=== PATIENT | female | born 1965 | race Caucasian/White ===

== ENCOUNTER 2025-05-25 22:26 | Inpatient (IN) | payer MEDICAID ==
[~2025-05-25] VITALS: Ht 157.5 cm; Wt 88.0 kg
[2025-05-25 23:21] LABS: PLATELET COUNT (AUTO) 238 K/uL (150-450); RED BLOOD CELL COUNT(AUTO) 4.85 MIL/uL (4.00-5.20); RED CELL DISTRIBUTION WIDTH 13.7 % (11.5-14.5); WHITE BLOOD COUNT (AUTO) 5.6 K/uL (4.5-11.0)
[2025-05-25 23:33] LABS: CREATINE KINASE, TOTAL ONLY 49 U/L (26-192)
[2025-05-25 23:36] LABS: CREATININE 0.96 mg/dL (0.60-1.30); GLOMERULAR FILTR. RATE CALC 59 mL/min (>60); GLUCOSE,RANDOM 124 mg/dL (70-110); SODIUM SERUM 139 mmol/L (136-145); TROPONIN I-HIGH SENSITIVITY 22 ng/L (<51); UREA NITROGEN, BLOOD 19 mg/dL (7-18)
[2025-05-25 23:38] LABS: CALCIUM, TOTAL 9.3 mg/dL (8.8-10.5)
[2025-05-26] VITALS (7 sets, daily range): BP systolic 91–107; BP diastolic 49–63; PULSE 81–91; RESP 18–19; TEMP 97.3–98.6; O2SAT 90–97
[2025-05-26] MEDS: ALBUTEROL SULFATE 2.5 MG/0.5 ML NEB SOLUTION NEB ONE (00:01)
[2025-05-26] MEDS: IPRATROPIUM BROMIDE 0.5 MG/2.5 ML NEB SOLUTION NEB ONE (00:01)
[2025-05-26] MEDS ORDERED: SODIUM CHLORIDE 0.9% 100 ML ONE (00:56)
[2025-05-26] MEDS ORDERED: IOHEXOL 350 MG/ML 100 ML VIAL ONE (00:56)
[2025-05-26] MEDS ORDERED: ONDANSETRON HCL 4 MG/2 ML VIAL IVP PRN (03:45)
[2025-05-26] MEDS: CefTRIAXone 1 GM/DEXTROSE 50 ML IV SCH (04:37)
[2025-05-26] MEDS: IPRATROPIUM BROMIDE 0.5 MG/2.5 ML NEB SOLUTION NEB PRN (05:09)
[2025-05-26] MEDS: ALBUTEROL SULFATE 2.5 MG/0.5 ML NEB SOLUTION NEB PRN (05:09)
[2025-05-26] MEDS: DOXYCYCLINE HYCLATE 100 MG TABLET PO SCH (08:20)
[2025-05-26] MEDS: FUROSEMIDE 20 MG/2 ML VIAL IVP SCH (11:23)
[2025-05-26] MEDS: ALBUMIN HUMAN 25%-12.5GM/50ML 50 ML IV PRN (17:09)
[2025-05-27 00:09] VITALS: BP 102/67; PULSE 77; RESP 19; TEMP 97.7; O2SAT 94
[2025-05-27 04:10] VITALS: BP 98/53; PULSE 87; RESP 18; TEMP 98.1; O2SAT 93
[2025-05-27 06:28] LABS: PLATELET COUNT (AUTO) 214 K/uL (150-450); RED BLOOD CELL COUNT(AUTO) 4.79 MIL/uL (4.00-5.20); RED CELL DISTRIBUTION WIDTH 13.9 % (11.5-14.5); WHITE BLOOD COUNT (AUTO) 5.8 K/uL (4.5-11.0)
[2025-05-27 06:39] LABS: CALCIUM, TOTAL 9.0 mg/dL (8.8-10.5); GLUCOSE,RANDOM 76 mg/dL (70-110); UREA NITROGEN, BLOOD 20 mg/dL (7-18)
[2025-05-27 06:45] LABS: CREATININE 0.82 mg/dL (0.60-1.30); GLOMERULAR FILTR. RATE CALC > 60 mL/min (>60); SODIUM SERUM 139 mmol/L (136-145)
[2025-05-27 07:26] LABS: TROPONIN I-HIGH SENSITIVITY 32 ng/L (<51)
[2025-05-27] MEDS ORDERED: POTASSIUM CHL 10 MEQ/WATER 50 ML IV PRN ×2 (08:45→10:15)
[2025-05-27 08:54] VITALS: BP 113/55; PULSE 95; RESP 18; TEMP 98.1; O2SAT 92
[2025-05-27] MEDS: FUROSEMIDE 20 MG/2 ML VIAL IVP SCH (09:00)
[2025-05-27] MEDS: POTASSIUM CHLORIDE 20 MEQ ER TABLET PO PRN (09:29)
[2025-05-27] MEDS ORDERED: TORS20TA5 PO (10:00)
[2025-05-27] MEDS ORDERED: EMPA10TA3 PO (10:00)
[2025-05-27] MEDS ORDERED: SPIR-37 PO (10:00)
[2025-05-27] MEDS ORDERED: [UNRECOGNIZED DRUG - CODE] PO (10:00)
[2025-05-27] MEDS ORDERED: DIGO125T84 PO (10:00)
[2025-05-27] MEDS ORDERED: MAGNESIUM OXIDE 400 MG TABLET PO PRN (10:15)
[2025-05-27] MEDS ORDERED: MAGNESIUM SULFATE 4 GM/WATER 100 ML IV PRN (10:15)
[2025-05-27] MEDS ORDERED: MAGNESIUM SULFATE 2 GM/WATER 50 ML IV PRN (10:15)
[2025-05-27] MEDS ORDERED: POTASSIUM CHLORIDE 20 MEQ ER TABLET PO PRN (10:15)
[2025-05-27 12:00] VITALS: BP 113/79; PULSE 85; RESP 20; TEMP 97.8; O2SAT 91
[2025-05-27] MEDS: POTASSIUM CHLORIDE 20 MEQ ER TABLET PO ONE (12:16)
[2025-05-27] MEDS: OMEPRAZOLE 20 MG CAPSULE PO SCH (12:16)
[2025-05-27] MEDS ORDERED: OMEP-148 PO (16:02)
[2025-05-27] MEDS ORDERED: LOSA-381 PO (16:02)
[2025-05-27] MEDS ORDERED: CALC500T37 PO (16:02)
[2025-05-27 16:06] VITALS: BP_SYST 112; BP_SYST 92; BP_DIAS 53; BP_DIAS 78; PULSE 80; PULSE 84; RESP 18; TEMP 97.7; O2SAT 95
[2025-05-27 20:09] VITALS: BP 114/63; PULSE 76; RESP 18; TEMP 98.1; O2SAT 94
[2025-05-28] VITALS: BP 101/65; PULSE 82; RESP 18; TEMP 97.7; O2SAT 96
[2025-05-28 04:39] VITALS: BP 95/51; PULSE 76; RESP 18; TEMP 97.9; O2SAT 95
[2025-05-28 07:45] VITALS: BP 102/58; PULSE 72; RESP 18; TEMP 98.2; O2SAT 94
[2025-05-28 07:53] LABS: PLATELET COUNT (AUTO) 223 K/uL (150-450); RED BLOOD CELL COUNT(AUTO) 4.82 MIL/uL (4.00-5.20); RED CELL DISTRIBUTION WIDTH 14.5 % (11.5-14.5); WHITE BLOOD COUNT (AUTO) 5.9 K/uL (4.5-11.0)
[2025-05-28 07:58] LABS: CALCIUM, TOTAL 9.3 mg/dL (8.8-10.5); CREATININE 0.80 mg/dL (0.60-1.30); GLOMERULAR FILTR. RATE CALC > 60 mL/min (>60); GLUCOSE,RANDOM 94 mg/dL (70-110); SODIUM SERUM 138 mmol/L (136-145); UREA NITROGEN, BLOOD 21 mg/dL (7-18)
[2025-05-28 08:57] LABS: ABG BASE EXCESS -0.1 mmol/L (-2.0-3.0); ABG CARBOXYHEMOGLOBIN 0.7 % (0.5-1.5); ABG HCO3 24.6 mmol/L (21.0-28.0); ABG METHEMOGLOBIN 0.3 % (0.0-1.5); ABG OXYGEN CONTENT 19.9 mL/dL (15.0-23.0); ABG OXYGEN SATURATION 97.6 % (94.0-98.0); ABG OXYHEMOGLOBIN 96.6 % (94.0-98.0); ABG PCO2 39 mmHg (32.0-45.0); ABG PH 7.417 (7.350-7.450); ABG TOTAL HEMOGLOBIN 14.6 G/dL (12.0-16.0); FRACTIONATED INSPIRED OXYGEN 36.0 % (21-100.0); PO2, ARTERIAL BG 100.4 mmHg (83.0-108.0); SOURCE, BLOOD GAS ARTERIAL; TEMPERATURE, FAHRENHEIT, BG 98.0 FAHREN (96.0-98.6)
[2025-05-28 08:58] LABS: ABG A-A DIFF O2 111.6 mmHg (10-20.0); ALLEN TEST, BLOOD GAS Positive; O2 DEVICE,BLOOD GAS NC (ROOM AIR); SITE, BLOOD GAS LFT RADIAL
[2025-05-28] MEDS: DIGOXIN 125 MCG TABLET PO SCH (09:11)
[2025-05-28] MEDS: EMPAGLIFLOZIN 10 MG TABLET PO SCH (09:11)
[2025-05-28] MEDS: SPIRONOLACTONE 25 MG TABLET PO SCH (09:11)
[2025-05-28 11:04] VITALS: BP 94/56; PULSE 69; RESP 18; TEMP 97.5; O2SAT 95
[2025-05-28] MEDS: TADALAFIL 40 MG PO SCH (12:05)
[2025-05-28] MEDS: MACITENTAN PO SCH (12:05)
[2025-05-28 16:03] VITALS: BP 112/59; PULSE 70; RESP 18; TEMP 97.5; O2SAT 95
[2025-05-28 20:50] VITALS: BP 106/66; PULSE 83; RESP 18; TEMP 97.7; O2SAT 94
[2025-05-29] VITALS (8 sets, daily range): BP systolic 94–160; BP diastolic 54–88; PULSE 74–90; RESP 17–19; TEMP 97.5–98.8; O2SAT 92–98
[2025-05-29 06:32] LABS: PLATELET COUNT (AUTO) 227 K/uL (150-450); RED BLOOD CELL COUNT(AUTO) 4.77 MIL/uL (4.00-5.20); RED CELL DISTRIBUTION WIDTH 13.8 % (11.5-14.5); WHITE BLOOD COUNT (AUTO) 5.2 K/uL (4.5-11.0)
[2025-05-29 06:55] LABS: CALCIUM, TOTAL 9.0 mg/dL (8.8-10.5); CREATININE 0.88 mg/dL (0.60-1.30); GLOMERULAR FILTR. RATE CALC > 60 mL/min (>60); GLUCOSE,RANDOM 124 mg/dL (70-110); SODIUM SERUM 137 mmol/L (136-145); UREA NITROGEN, BLOOD 20 mg/dL (7-18)
[2025-05-29] MEDS: FUROSEMIDE 20 MG TABLET PO SCH (08:18)
[2025-05-29] MEDS ORDERED: SODIUM CHLORIDE 0.9% 500 ML IV ONE (12:50)
[2025-05-29] MEDS ORDERED: FUROSEMIDE 20 MG/2 ML VIAL IVP ONE (21:15)
[2025-05-29] MEDS: FUROSEMIDE 20 MG/2 ML VIAL IVP ONE (21:19)
[2025-05-30] VITALS (7 sets, daily range): BP systolic 103–118; BP diastolic 65–84; PULSE 69–86; RESP 18–19; TEMP 97.3–98.2; O2SAT 91–97
[2025-05-30] MEDS: ACETAMINOPHEN 325 MG TABLET PO PRN (06:15)
[2025-05-30] MEDS: PHENAZOPYRIDINE HCL 100 MG TABLET PO SCH (10:31)
[2025-05-31 04:17] VITALS: BP 96/46; PULSE 85; RESP 18; TEMP 98.1; O2SAT 93
[2025-05-31] MEDS: FUROSEMIDE 20 MG/2 ML VIAL IVP ONE (05:00)
[2025-05-31 06:22] LABS: PLATELET COUNT (AUTO) 215 K/uL (150-450); RED BLOOD CELL COUNT(AUTO) 4.99 MIL/uL (4.00-5.20); RED CELL DISTRIBUTION WIDTH 13.9 % (11.5-14.5); WHITE BLOOD COUNT (AUTO) 5.6 K/uL (4.5-11.0)
[2025-05-31 06:28] LABS: CALCIUM, TOTAL 10.4 mg/dL (8.8-10.5); CREATININE 0.85 mg/dL (0.60-1.30); GLOMERULAR FILTR. RATE CALC > 60 mL/min (>60); GLUCOSE,RANDOM 102 mg/dL (70-110); SODIUM SERUM 139 mmol/L (136-145); UREA NITROGEN, BLOOD 20 mg/dL (7-18)
[2025-05-31 08:14] VITALS: BP 93/51; PULSE 71; RESP 19; TEMP 97.5; O2SAT 100
[2025-05-31 08:44] VITALS: BP_SYST 109; BP_SYST 112; BP_SYST 114; BP_DIAS 61; BP_DIAS 64; BP_DIAS 68; PULSE 88
[2025-05-31] MEDS ORDERED: FURO20TA4 PO (10:40)
[2025-05-31] MEDS ORDERED: PHEN-947 PO (10:40)
[2025-05-31 11:02] VITALS: BP 108/57; PULSE 89; RESP 19; TEMP 97.7; O2SAT 94
[2025-05-31 15:39] VITALS: BP 113/73; PULSE 90; RESP 18; TEMP 97.8; O2SAT 94
== END 2025-05-31 16:15 | disposition home or self-care (01) | DRG 194 ==
LOC: EMS 22:28 → EDH 05-26 03:34 → 5S 05-26 06:32
PROVIDERS: ADMIT Internal Medicine; ATTEND Internal Medicine
DX: I50.43 Acute on chronic combined systolic (congestive) and diastolic (congestive) heart failure (principal); J96.21 Acute and chronic respiratory failure with hypoxia; R57.0 Cardiogenic shock; I27.21 Secondary pulmonary arterial hypertension; R53.1 Weakness; I27.81 Cor pulmonale (chronic); E87.6 Hypokalemia; I50.82 Biventricular heart failure; Z98.61 Coronary angioplasty status; Z88.5 Allergy status to narcotic agent; Z86.711 Personal history of pulmonary embolism
CPT/HCPCS: 71045; 71275; 80048; 80162; 82040; 82550; 82805; 83735; 83880; 84132; 84145; 84484; 85025; 85379; 93005; 93306; 93970; 94060; 94640; 99291; J0696; J1938; J7040; J7050; P9047; 36415-L1; 36415-TC; J7613